=== PATIENT | female | born 1960 | race Caucasian/White ===

== ENCOUNTER → 2020-04-28 12:29 | Outpatient (CLI) | payer OTHER, SELFPAY ==
--- NOTE | ~2020-04-28 | MM_ITS ---
EXAMINATION: MM screening [facility] BI w darnell HISTORY: Screening mammogram TECHNIQUE: Craniocaudal and mediolateral oblique 3-D tomosynthesis images were obtained and synthetic 2-D images were generated. CAD analysis was submitted and interpreted. COMPARISON: 02/08/2019, 12/24/2017, 10/16/2016, 09/13/2015 BREAST PARENCHYMAL COMPOSITION: There are scattered areas of fibroglandular density. FINDINGS: There is no evidence of suspicious mass, calcification, or architectural distortion to sugg est malignancy in either breast. There has been no suspicious interval change. IMPRESSION: 1. No mammographic evidence of malignancy. 2. Recommend routine screening mammography in one year. BI-RADS Category 1: Negative Reviewed, dictated and finalized at location A. [employer]
== END ==
PROVIDERS: PCP Internal Medicine; Visit Provider Obstetrics & Gynecology Gynecologic Oncology
DX: Z12.31 Encounter for screening mammogram for malignant neoplasm of breast (principal)
CPT/HCPCS: 77063; 77067

== ENCOUNTER 2020-08-22 10:54 | Outpatient (CLI) | payer OTHER, SELFPAY | END 2020-08-22 10:55 | disposition home or self-care (01) | LOC: ANHCOVIDVC 10:54 | PROVIDERS: PCP Internal Medicine | DX: Z23 Encounter for immunization (principal) | CPT/HCPCS: 0001A; 91300 ==

== ENCOUNTER 2020-09-12 10:54 | Outpatient (CLI) | payer OTHER, SELFPAY | END 2020-09-12 10:55 | disposition home or self-care (01) | LOC: ANHCOVIDVC 10:54 | PROVIDERS: PCP Internal Medicine | DX: Z23 Encounter for immunization (principal) | CPT/HCPCS: 0002A; 91300 ==

== ENCOUNTER → 2021-06-25 14:47 | Outpatient (CLI) | payer OTHER, SELFPAY ==
--- NOTE | ~2021-06-25 | MM_ITS ---
EXAMINATION: MM screening [facility] w darnell HISTORY: Screening TECHNIQUE: Craniocaudal and mediolateral oblique 3-D tomosynthesis images were obtained and synthetic 2-D images were generated. CAD analysis was submitted and interpreted. COMPARISON: Comparison to multiple prior studies sequentially, with oldest reviewed study dated 07/13. BREAST PARENCHYMAL COMPOSITION: There are scattered areas of fibroglandular density. FINDINGS: There is no evidence of suspicious mass, calcification, or architectural distortion to sugg est malignancy in either breast. There has been no suspicious interval change. IMPRESSION: 1. No mammographic evidence of malignancy. 2. Recommend routine screening mammography in one year. BI-RADS Category 1: Negative Reviewed, dictated and finalized at location A. CARPENTER
== END ==
PROVIDERS: PCP Internal Medicine; Visit Provider Nurse Practitioner
DX: Z12.31 Encounter for screening mammogram for malignant neoplasm of breast (principal)
CPT/HCPCS: 77063; 77067

== ENCOUNTER → 2021-08-23 11:15 | Outpatient (CLI) | payer OTHER, SELFPAY ==
--- NOTE | ~2021-08-23 | DEXA_ITS ---
Bone Density Report Name: BRIDGET KWON Age: 61 Sex: Female Ethnicity: White Date of : 1960 Indication: postmenopausal; screening for osteoporosis; Referring Provider: Rosa Maria Lepe Study: Bone densitometry was performed. Exam Date: August 23, 2021 Accession number: [id number] Bone Density: Region BMD T-score Z-score Classification AP Spine (L1-L4) 1.187 1.3 2.9 Normal Femoral Neck (Left) 1.039 1.7 3.1 Normal Total Hip (Left) 1.136 1.6 2.7 Normal Femoral Neck (Right) 1.124 2.5 3.9 Normal Total Hip (Right) 1.181 2.0 3.1 Normal Total Hip Mean 1.159 1.8 2.9 Normal World Health Organization criteria for BMD impression classify patients as: Normal (T-score at or above -1.0), Osteopenia (T-score between -1.0 and -2.5), or Osteoporosis (T-score at or below -2.5). 10-year Fracture Risk: FRAX not reported because: All T-scores for Spine Total, Hip Total, Femoral Neck at or above -1.0 Treated for osteoporosis Clinical Information Provided by Patient: Is being treated for osteoporosis Has used the following medications: HRT (i.e. estrogen/hormone therapy), Vitamin D, Calcium Patient maximum height was 65 Menopause Age: 50 Drinks caffeinated beverages Onset of menses at age 10 Number of children 3 Impression: The patient has normal bone mass. Discussion: It is important to ask patients whether they are taking their medications and to encourage continued and appropriate compliance with their osteoporosis therapies to reduce fracture risk. It is also important to review their risk factors and encourage appropriate calcium and vitamin D intakes, exercise, fall prevention and other lifestyle measures. Follow-Up: Consider a repeat BMD and Vertebral Fracture Assessment (VFA) exam in 2 years or sooner if medically necessary, to reassess this patient's status. Reported by: TANJA on 08/23/2021 11:32:00 AM. Reviewed, dictated and finalized at location ASaskia OGDEN
== END ==
PROVIDERS: PCP Internal Medicine; Visit Provider Nurse Practitioner
DX: Z78.0 Asymptomatic menopausal state (principal)
CPT/HCPCS: 77080

== ENCOUNTER 2022-09-05 00:59 | Day surgery (SDC) | payer OTHER, SELFPAY ==
[2022-08-26 09:57] VITALS: BMI 25.8
[2022-09-05 07:30] VITALS: BP 135/88; PULSE 77; RESP 16; TEMP 36.2; O2SAT 100; BMI 26.1
--- NOTE | 2022-09-05 07:52 | WPDANESEPPF ---
Anes - Initial Pre Proc Eval Procedure: Operation Date: 09/05/22 08:30 Proposed Procedures p Colonoscopy - Miguel Orourke MD Date/Time: 09/05/22 07:52 Surgeon: Miguel Orourke MD Pre Op Diagnosis: other specified personal risk factors Patient Data Age: 62 Gender: F Height: 1.65 m Weight: 71.1 kg Last Vital Signs Temp 36.2 C L 09/05/22 07:30 Pulse 77 09/05/22 07:30 Resp 16 09/05/22 07:30 BP 135/88 09/05/22 07:30 Pulse Ox 100 09/05/22 07:30 O2 Del Method Room Air 09/05/22 07:30 Allergies Allergy/AdvReac Type Severity Reaction Status Date / Time Penicillins Allergy Mild RASH Verified 09/05/22 07:41 hydrocodone Allergy Unknown Rash Verified 09/05/22 07:41 Home Medications Medication Instructions Recorded Confirmed Type drospirenone 0.25 mg-estradiol 0.5 1 tablet PO .qod 10/13/19 09/05/22 History mg tablet (Angeliq) lifitegrast 5 % eye drops in a 1 drp EACH EYE ONCE 04/19/21 09/05/22 History dropperette multivitamin 1 tablet PO DAILY 04/19/21 09/05/22 History gabapentin 100 mg capsule 200 mg PO DAILY #180 caps 11/02/21 09/05/22 Rx spironolactone 100 mg tablet 100 mg PO DAILY #90 tabs 04/25/22 09/05/22 Rx acetaminophen 500 mg capsule 1,000 mg PO BID 08/26/22 09/05/22 History diclofenac sodium 1 % topical gel 1 ea topical PRN pain 08/26/22 09/05/22 History ibuprofen 200 mg tablet 200 mg PO DAILY 08/26/22 09/05/22 History Patient hx anesthesia problems: none Family hx anesthesia problems: none Results Review: All pre-operative results and documents have been reviewed as part of the pre-operative evaluation. [facility] Past Medical History Medical History (Updated 09/05/22 @ 07:53 by Michael Fitzgerald DO) Asthma Chronic pain of left knee Elevated blood pressure reading Hormone replacement therapy Hot flashes due to menopause Hypertension Tenosynovitis Surgical History Surgical History H/O section History of tonsillectomy Family History Family History Mother Family history of thyroid disease, Onset Age: 84 Hypertension, Onset Age: 84 Family history of Alzheimer's disease, Onset Age: 84 Father Patient's father is in good health Family history of elevated blood lipids Grandparent Family history of cardiovascular disease Carcinoma of colon Family history of congestive heart failure Social History Social History Smoking packs per day: 1 Smoking cigarettes per day: 20.0 Years smoked: 9 Smoking pack-years: 9.00 Smoking status: Never smoker Second hand tobacco smoke exposure: No Smoking end date: 06/16/86 Alcohol intake: current Drinks per week: 7 Alcohol use details: 1 glass wine daily Substance use: never Substance use type: does not use Lack of Transportation: No Lack of Food: Never True Current Housing: I Have Housing Concerned About Future Housing: No Difficulty Paying Gas/Electric Bills: No Difficulty Paying for Meds: No Currently Unemployed: No Education: Master's Degree or Higher Difficulty w/ Childcare or Family Care: No Living arrangements: with family Spiritual care concerns: No Anes - Eval Final PreProcedure Day of Procedure 09/05/22 07:52 Patient weight: overweight Heart: regular rate and rhythm Lungs: clear to auscultation Airway: Mallampati scale class II Neurological: alert and oriented Last oral intake: >/= 8 hours ASA classification: III Emergent: no Anesthetic plan: proceed Anesthesia type and monitoring: general GIVS and standard monitoring Results Review: All pre-operative results and documents have been reviewed as part of the pre-operative evaluation. Informed Consent: The patient's anesthetic plan and its attendant risks and benefits were discussed with the patient/family/POA. Que
[2022-09-05] MEDS: LACTATED RINGERS 1,000 ML 150 ML IV CONT (08:00)
--- NOTE | 2022-09-05 08:44 | PM.HPGS ---
History of Present Illness History of Present Illness Consent: Risks, benefits, and alternatives have been discussed and questions answered. Patient agrees to proceed with procedure. Chief complaint: positive cologuard test Narrative: Adriana Cameron is a 62 year old female Presents for screening colonoscopy. Patient recently found to have a positive Cologuard test. Patient's current weight appetite and bowel movements are normal. Patient denies abdominal pain. She has had no bleeding. Patient's family history is significant that her mother has had colon polyps. Her grandmother had colon cancer. Review of Systems Review of Systems: Review of systems noncontributory. [facility] Past Medical History Medical History (Updated 09/05/22 @ 08:45 by Miguel Orourke MD) Asthma Chronic pain of left knee Elevated blood pressure reading Hormone replacement therapy Hot flashes due to menopause Hypertension Tenosynovitis Surgical History Surgical History H/O section History of tonsillectomy Family History Family History Mother Family history of thyroid disease, Onset Age: 84 Hypertension, Onset Age: 84 Family history of Alzheimer's disease, Onset Age: 84 Father Patient's father is in good health Family history of elevated blood lipids Grandparent Family history of cardiovascular disease Carcinoma of colon Family history of congestive heart failure Social History Social History Smoking packs per day: 1 Smoking cigarettes per day: 20.0 Years smoked: 9 Smoking pack-years: 9.00 Smoking status: Never smoker Second hand tobacco smoke exposure: No Smoking end date: 06/16/86 Alcohol intake: current Drinks per week: 7 Alcohol use details: 1 glass wine daily Substance use: never Substance use type: does not use Lack of Transportation: No Lack of Food: Never True Current Housing: I Have Housing Concerned About Future Housing: No Difficulty Paying Gas/Electric Bills: No Difficulty Paying for Meds: No Currently Unemployed: No Education: Master's Degree or Higher Difficulty w/ Childcare or Family Care: No Living arrangements: with family Spiritual care concerns: No Meds Home Medications and Allergies Home Medications Medication Instructions Recorded Confirmed Type drospirenone 0.25 mg-estradiol 0.5 1 tablet PO .qod 10/13/19 09/05/22 History mg tablet (Angeliq) lifitegrast 5 % eye drops in a 1 drp EACH EYE ONCE 04/19/21 09/05/22 History dropperette multivitamin 1 tablet PO DAILY 04/19/21 09/05/22 History gabapentin 100 mg capsule 200 mg PO DAILY #180 caps 11/02/21 09/05/22 Rx spironolactone 100 mg tablet 100 mg PO DAILY #90 tabs 04/25/22 09/05/22 Rx acetaminophen 500 mg capsule 1,000 mg PO BID 08/26/22 09/05/22 History diclofenac sodium 1 % topical gel 1 ea topical PRN pain 08/26/22 09/05/22 History ibuprofen 200 mg tablet 200 mg PO DAILY 08/26/22 09/05/22 History Allergies Allergy/AdvReac Type Severity Reaction Status Date / Time Penicillins Allergy Mild RASH Verified 09/05/22 07:41 hydrocodone Allergy Unknown Rash Verified 09/05/22 07:41 Vital Signs Vital Signs - 24 hr 09/05/22 07:30 Temperature 97.1 F L Pulse Rate 77 Respiratory Rate 16 Blood Pressure 135/88 Pulse Oximetry 100 Oxygen Delivery Room Air Exam Narrative: Physical exam reveals patient to be alert. Vital signs stable. HEENT exam is unremarkable. Patient is anicteric. Lungs are clear to auscultation and percussion. Heart is without murmur or extra sounds. Abdominal exam bowel sounds are present soft nontender with no organomegaly. Digital external rectal exam is normal. Assessment and Plan Assessment and plan (1) Positive colorectal cancer screening using Cologuard test:
[2022-09-05 09:17] VITALS: BP 94/57; PULSE 70; RESP 16; O2SAT 100
[2022-09-05 09:27] VITALS: BP 111/79; PULSE 74; RESP 22; O2SAT 100
[2022-09-05 09:37] VITALS: BP 121/79; PULSE 63; RESP 22; O2SAT 100
== END 2022-09-05 09:50 | disposition home or self-care (01) ==
PROVIDERS: PCP Internal Medicine; Visit Provider Internal Medicine Gastroenterology
PROC: 0DJD8ZZ Inspection of Lower Intestinal Tract, Via Natural or Artificial Opening Endoscopic (ICD-10-PCS; CPT 45378; principal; 2022-09-05 08:30)
DX: R19.5 Other fecal abnormalities (principal); D12.2 Benign neoplasm of ascending colon; K57.30 Diverticulosis of large intestine without perforation or abscess without bleeding; Z83.71 Family history of colonic polyps; I10 Essential (primary) hypertension; Z79.890 Hormone replacement therapy
CPT/HCPCS: 45385; 88305; J2704; J7120

== ENCOUNTER → 2022-10-22 17:20 | Outpatient (CLI) | payer OTHER, SELFPAY ==
--- NOTE | ~2022-10-22 | MM_ITS ---
EXAMINATION: MM screening [facility] w darnell HISTORY: Screening mammogram TECHNIQUE: Craniocaudal and mediolateral oblique 3-D tomosynthesis images were obtained and synthetic 2-D images were generated. CAD analysis was submitted and interpreted. COMPARISON: 06/25/2021, 04/28/2020, 02/08/2019 BREAST PARENCHYMAL COMPOSITION:There are scattered areas of fibroglandular density. FINDINGS: No suspicious mass, calcification, or architectural distortion are identified in either carson ast to suggest malignancy. There has been no suspicious interval change. IMPRESSION: No mammographic evidence of malignancy. Recommend routine screening mammography in one year. BI-RADS Category 1: Negative Reviewed, dictated and finalized at location .
== END ==
PROVIDERS: PCP Internal Medicine; Visit Provider Obstetrics & Gynecology Gynecologic Oncology
DX: Z12.31 Encounter for screening mammogram for malignant neoplasm of breast (principal)
CPT/HCPCS: 77063; 77067

== ENCOUNTER 2023-11-18 12:20 | Outpatient (CLI) | payer MEDICARE, SELFPAY ==
--- NOTE | ~2023-11-18 | MM_ITS ---
EXAMINATION: MM screening [facility] w darnell HISTORY: Screening TECHNIQUE: Craniocaudal and mediolateral oblique 3-D tomosynthesis images were obtained and synthetic 2-D images were generated. CAD analysis was submitted and interpreted. COMPARISON: Comparison to multiple prior studies sequentially, with oldest reviewed study dated 02/2023. BREAST PARENCHYMAL COMPOSITION: Not dense: There are scattered areas of fibroglandular density. FINDINGS: There is no evidence of suspicious mass, calcification, or architectural distortion to sugg est malignancy in either breast. There has been no suspicious interval change. IMPRESSION: 1. No mammographic evidence of malignancy. 2. Recommend routine screening mammography in one year. BI-RADS Category 1: Negative Reviewed, dictated and finalized at location B.
== END 2023-11-18 12:21 ==
PROVIDERS: PCP Family Medicine; Visit Provider Family Medicine
DX: Z12.31 Encounter for screening mammogram for malignant neoplasm of breast (principal)
CPT/HCPCS: 77063; 77067

== ENCOUNTER 2025-03-31 08:19 | Outpatient (CLI) | payer MEDICARE, SELFPAY ==
--- NOTE | ~2025-03-31 | MM_ITS ---
EXAMINATION: MM screening [facility] BI w darnell HISTORY: Screening TECHNIQUE: Craniocaudal and mediolateral oblique 3-D tomosynthesis images were obtained and synthetic 2-D images were generated. CAD analysis was submitted and interpreted. COMPARISON: 10/22/2022 BREAST PARENCHYMAL COMPOSITION: There are scattered areas of fibroglandular density. FINDINGS: There is no evidence of suspicious mass, calcification, or architectural distortion to suggest malignancy. There has been no suspicious interval change. IMPRESSION: 1. No mammographic evidence of malignancy. Recommend routine screening mammography in one year. BI-RADS Category 2: Benign finding(s) Reviewed, dictated and finalized at location Q. IMPRESSION: 1. No mammographic evidence of malignancy. Recommend routine screening mammogra phy in one year. BI-RADS Category 2: Benign finding(s)
--- OUTSIDE RECORDS SUMMARY | 2025-03-31 08:30 | XMS_ITS | Clinical Summary ---
Author Organization [facility] Address [address] [place]: Epic Prelude ADT NOEL GARCIA [id number] Care Team Providers Care Experimental Physicist Name Role Phone Unavailable Primary Care Provider Unavailabl e Allergies Active Allergy Reactions Criticality Noted Date Comments Hydrocodone-Acetaminophen Unknown 02/04/2023 Penicillins Unknown 02/04/2023 Medications lifitegrast (Xiidra) 5 % Dropperette ADMINISTER 1 DROP IN EACH EYE TWICE DAILY. 60 Each 2 Active diclofenac sodium (VOLTAREN) 1 % gel Apply 2 grams four times daily to single elbow, wrist or hand; for hand includes palm/fingers/ba ck of hand. 100 Gram 3 08/26/2022 3:30 PM CDT 2 Active spironolactone (ALDACTONE) 100 mg tablet Take 1 tablet by mouth once daily 90 Tablet 1 12/14/2022 2:05 PM CDT 2 Active drospirenone-es tradioL (Angeliq) 0.25-0.5 mg Tablet Take 1 Tablet by mouth daily. 84 Tablet 3 06/02/2023 2:54 PM TELECOMMUNICATION SYSTEMS DESIGNER 3 Active sodium, potassium and magnesium sulfates (SUPREP) 17.5-3.13-1.6 gram Recon Soln TAKE DIRECTED 354 mL 08/17/2022 2:20 PM TELECOMMUNICATION SYSTEMS DESIGNER 3 Active gabapentin (NEURONTIN) 100 mg capsule Take 2 Capsules (200 mg) by mouth daily. 180 Capsule 1 03/13/2023 4:58 PM CDT 3 Active Clindamycin-Serafin zoyl Peroxide 1-5 % Gel APPLY TO PIMPLES ON FACE DAILY NEEDED 50 Gram 02/06/2023 1:26 PM CDT 3 Active lifitegrast (Xiidra) 5 % Dropperette Instill one drop into both eyes twice a day. NEED APPOINTMENT FOR REFILLS 60 Each 3 Active ciprofloxacin-d exAMETHasone (CIPRODEX) 0.3-0.1 % Drops, Suspension ADMINISTER 4 DROPS IN THE RIGHT EAR EVERY 12 HOURS FOR 7 DAYS 7.5 mL 06/03/2023 3:13 PM TELECOMMUNICATION SYSTEMS DESIGNER 3 Active gabapentin (NEURONTIN) 100 mg capsule TAKE 2 CAPSULES BY MOUTH DAILY 180 Capsule 1 08/07/2023 11:22 AM TELECOMMUNICATION SYSTEMS DESIGNER 4 Active lifitegrast (Xiidra) 5 % Dropperette Instill one drop into both eyes twice a day 180 Each 1 07/19/2024 2:21 PM TELECOMMUNICATION SYSTEMS DESIGNER 4 Active drospirenone-es tradioL (Angeliq) 0.25-0.5 mg Tablet Take 1 Tablet by mouth daily. 84 Tablet 1 02/18/2024 3:24 PM CDT 4 Active gabapentin (NEURONTIN) 100 mg capsule Take 2 Capsules (200 mg) by mouth daily. 180 Capsule 1 02/18/2024 3:24 PM CDT 4 Active spironolactone (ALDACTONE) 100 mg tablet Take 1 Tablet (100 mg) by mouth daily. 90 Tablet 1 02/02/2025 3:47 PM CDT 4 Active Clindamycin-Serafin zoyl Peroxide 1-5 % Gel Apply to pimples on face daily as needed. 50 Gram 2 07/23/2024 1:17 PM TELECOMMUNICATION SYSTEMS DESIGNER 5 Active spironolactone (ALDACTONE) 100 mg tablet Take 1 Tablet (100 mg) by mouth daily. 90 Tablet 1 5 Active cyclobenzaprine (FLEXERIL) 10 mg tablet Take 1 Tablet (10 mg) by mouth 3 times daily as needed for muscle spasms. 20 Tablet 08/20/2024 12:16 PM TELECOMMUNICATION SYSTEMS DESIGNER 5 Active Estradiol-Drosp irenone (Angeliq) 0.5-1 mg Tablet Take 1 Tablet by mouth daily. 84 Tablet 1 11/24/2024 1:07 PM CDT 5 Active Estradiol-Drosp irenone (Angeliq) 0.5-1 mg Tablet Take 1 tablet orally daily 84 Tablet 1 5 Active gabapentin (NEURONTIN) 100 mg capsule Take 200 MG (2 x 100 mg) orally daily 180 Capsule 1 Active spironolactone (ALDACTONE) 100 mg tablet Take one tablet (100 MG) orally daily 90 Tablet 1 Active gabapentin (NEURONTIN) 100 mg capsule Take 2 Capsules (200 mg) by mouth daily. 180 Capsule 1 02/02/2025 3:47 PM CDT 5 025 Discontin ued(Reord er) Encounters Date Type Department Care Team Description 02/22/2025 External Device Data [facility]STRACTION Provider, Abstract 01/19/2025 External Device Data [facility]STRACTION Provider, Abstract 12/29/2024 External Device Data [facility]STRACTION Provider, Abstract from Last 3 Months Immunizations Immunization Administration Dates Next Due INFLUENZA VACCINE QUADRIVALENT 6 MOS UP PF IM ,04/16/2022 Social History Tobacco Use Types Packs/Day Years Used Date Smoking Tobacco: Never Assessed Comments Unknown Sex and Gender Information Value Date Recorded Sex Assigned at Not on file Legal Sex Female 3:26 PM CDT Gender Identity Not on file Sexual Orientation Not on file Plan of Treatment Health Maintenance Due Date Last Done Comments DTAP/TDAP/TD VACCINES (1 - Tdap) 1977 BREAST CANCER SCREENING 1998 COLORECTAL SCREENING 2003 Colorectal Cancer Screening 2003 FIT-DNA Q 3 years 2003 FIT/FOBT Q 1 year 2003 Flex Sig/CT Colonography Q 5 years 2003 PNEUMOCOCCAL VACCINE 50+ YEA RS (1 of 1 - PCV) 2008 ZOSTER VACCINE (1 of 2) 2008 OSTEOPOROSIS SCREENING 2023 INFLUENZA VACCINE (#1) 2025 04/21/2023, 2021 RSV VACCINE (60+ or ) (1 - 1-dose 75+ series) 2033 Insurance RX [employer] (INTERNAL) [facility] RX [employer] Medicare Part D
== END 2025-03-31 08:20 | disposition home or self-care (01) ==
PROVIDERS: PCP Family Medicine; Visit Provider Family Medicine
DX: Z12.31 Encounter for screening mammogram for malignant neoplasm of breast (principal)
CPT/HCPCS: 77063; 77067

== ENCOUNTER 2025-03-31 09:01 | Outpatient (CLI) | payer MEDICARE, SELFPAY ==
--- NOTE | ~2025-03-31 | XR_ITS ---
EXAMINATION: XR knee LT 3V, 03/31/2025 9:20 CDT HISTORY: M25.569 - Pain in unspecified knee COMPARISON: No comparisons available. Findings: No acute fracture or malalignment. Moderate tricompartmental degenerative changes Soft tissues unremarkable. Impression: No acute fracture or malalignment. Reviewed, dictated and finalized at location P. Impression: No acute fracture or malalignment.
== END 2025-03-31 09:02 | disposition home or self-care (01) ==
LOC: MICIMG 09:02
PROVIDERS: PCP Family Medicine; Visit Provider Family Medicine
DX: M25.562 Pain in left knee (principal)
CPT/HCPCS: 73562